=== PATIENT | female | born 1975 | race Two or more races ===

== ENCOUNTER 2025-03-02 10:05 | Inpatient (IN) | payer OTHER ==
[2025-03-02] MEDS ORDERED: ONDANSETRON 4 MG/2 ML VIAL ONE (11:24)
[2025-03-02 12:13] LABS: ABSOLUTE IMMATURE GRANULOCYTES 0.03 x10^3/uL (0.0-0.031); BASOPHILS # 0.03 x10^3/uL (0.01-0.08); EOSINOPHIL % 0.2 % (0.7-5.8); EOSINOPHILS # 0.02 x10^3/uL (0.04-0.36); MCHC 32.9 g/dl (32.2-35.5); MEAN CELL VOLUME 91.9 fl (79.4-94.8); MEAN PLT VOLUME 9.1 fl (9.4-12.3); MONOCYTE # 0.49 x10^3/uL (0.24-0.86); MONOCYTE % 4.9 % (4.7-12.5); RDW 12.9 % (12.2-17.1)
[2025-03-02] MEDS: ONDANSETRON 4 MG/2 ML VIAL IVPUSH ONE (12:14)
[2025-03-02] MEDS: SODIUM CHLORIDE 1,000 ML IV STA ×2 (12:14→18:26)
[2025-03-02] MEDS: morphine CARPU-JECT 4 MG/1 ML DISP.SYRIN IVPUSH ONE ×2 (12:14→16:08)
[2025-03-02 12:18] LABS: URINE APPEARANCE TURBID; URINE BILIRUBIN NEGATIVE (NEGATIVE); URINE COLOR YELLOW; URINE GLUCOSE (UA) NEGATIVE (NEGATIVE); URINE KETONE NEGATIVE (NEGATIVE); URINE NITRITE NEGATIVE (NEGATIVE); URINE PROTEIN NEGATIVE (NEGATIVE); URINE UROBILINOGEN 0.2 mg/dL (0.2-1.0)
[2025-03-02 12:19] LABS: HCG,QUALITATIVE URINE Negative; URINE LEUK ESTERASE NEGATIVE (NEGATIVE)
[2025-03-02 12:54] LABS: GLUCOSE,RANDOM 112.0 mg/dL (74-106)
[2025-03-02 12:55] LABS: CO2 25.0 mmol/L (21-32); TOT PROT 8.3 g/dl (6.4-8.2)
[2025-03-02 12:57] LABS: ALK PHOS 91.0 U/L (40-150)
[2025-03-02 13:00] LABS: CREATININE 0.44 mg/dL (0.55-1.3); SGOT/AST 52.0 U/L (5-34); SGPT/ALT 47.0 U/L (0-55)
[2025-03-02] MEDS ORDERED: KETOROLAC TROMETHAMINE 30 MG/1 ML VIAL IVPUSH PRN (16:42)
[2025-03-02] MEDS: PIPERACILLIN/TAZOB 4.5 GM 4.5 GM in DEXTROSE 5%-WATER 100 ML IVPB ONE (18:27)
[2025-03-02] MEDS: PIPERACILLIN/TAZOB 3.375 GM 3.375 GM in DEXTROSE 5%-WATER - 50 ML IVPB SCH (18:45)
[2025-03-02] MEDS: ACETAMINOPHEN 500 MG TABLET (FP) PO PRN (19:30)
[2025-03-02] MEDS: LOSARTAN 50MG/HCTZ 12.5MG 1 TAB PO SCH (19:41)
[2025-03-02 19:43] LABS: GLUCOSE,RANDOM 107.0 mg/dL (74-106); TOT PROT 7.1 g/dl (6.4-8.2)
[2025-03-02 19:44] LABS: CO2 24.0 mmol/L (21-32)
[2025-03-02 19:46] LABS: ALK PHOS 84.0 U/L (40-150)
[2025-03-02 19:48] VITALS: BMI 37.5
[2025-03-02 19:48] LABS: SGOT/AST 24.0 U/L (5-34); SGPT/ALT 39.0 U/L (0-55)
[2025-03-02 19:49] LABS: CREATININE 0.5 mg/dL (0.55-1.3)
[2025-03-02 20:10] LABS: HCV DIAGNOSTIC IN-HOUSE W/RFLX NON-REACTIVE (NONREACTIVE)
[2025-03-02 20:11] LABS: HIV INTERPRETATION NEGATIVE (NEGATIVE)
[2025-03-02] MEDS: LACTATED RINGERS SOLUTION 1,000 ML/1,000 ML INFUS.BAG IV SCH (20:53)
[2025-03-02] MEDS: ONDANSETRON 4 MG/2 ML VIAL IVPUSH PRN (20:53)
[2025-03-03 07:31] LABS: ABSOLUTE IMMATURE GRANULOCYTES 0.05 x10^3/uL (0.0-0.031); BASOPHILS # 0.02 x10^3/uL (0.01-0.08); EOSINOPHIL % 0.2 % (0.7-5.8); EOSINOPHILS # 0.02 x10^3/uL (0.04-0.36); MCHC 32.9 g/dl (32.2-35.5); MEAN CELL VOLUME 91.8 fl (79.4-94.8); MEAN PLT VOLUME 9.0 fl (9.4-12.3); MONOCYTE # 0.53 x10^3/uL (0.24-0.86); MONOCYTE % 4.6 % (4.7-12.5); RDW 13.0 % (12.2-17.1)
[2025-03-03 07:55] LABS: GLUCOSE,RANDOM 111.0 mg/dL (74-106)
[2025-03-03 07:56] LABS: CO2 27.0 mmol/L (21-32); TOT PROT 6.5 g/dl (6.4-8.2)
[2025-03-03 07:58] LABS: ALK PHOS 76.0 U/L (40-150)
[2025-03-03 08:01] LABS: CREATININE 0.52 mg/dL (0.55-1.3); SGOT/AST 21.0 U/L (5-34); SGPT/ALT 34.0 U/L (0-55)
[2025-03-03] MEDS: KCL 10 MEQ IVPB 10 MEQ/100 ML INFUS.BAG IVPB SCH (08:59)
[2025-03-03] MEDS: ENOXAPARIN NA (PORCINE) 40 MG/0.4 ML DISP.SYRIN SQ SCH (09:02)
[2025-03-03] MEDS: ACETAMINOPHEN 1000 MG/100 ML BAG IVPB SCH (09:02)
[2025-03-03] MEDS: AMINO ACIDS 4.25%/D5W 1,000 ML IV SCH (09:58)
[2025-03-03] MEDS ORDERED: POLYETHYLENE GLYCOL (HEALTHYLAX) 3350 17 GM PACKET PO SCH (10:00)
[2025-03-03] MEDS: KETOROLAC TROMETHAMINE 15 MG/ML VIAL IVPUSH SCH (11:16)
[2025-03-04] MEDS ORDERED: PIPERACILLIN/TAZOBACTAM 3.375 GM VIAL IVPB ONE (06:25)
[2025-03-04 07:26] LABS: MCHC 32.8 g/dl (32.2-35.5); MEAN CELL VOLUME 91.0 fl (79.4-94.8); MEAN PLT VOLUME 9.2 fl (9.4-12.3); RDW 12.9 % (12.2-17.1)
[2025-03-04 07:55] LABS: GLUCOSE,RANDOM 99.0 mg/dL (74-106)
[2025-03-04 07:57] LABS: CO2 25.0 mmol/L (21-32)
[2025-03-04 08:01] LABS: CREATININE 0.51 mg/dL (0.55-1.3)
[2025-03-04] MEDS: KCL 10 MEQ IVPB 10 MEQ/100 ML INFUS.BAG IVPB SCH (09:16)
[2025-03-04] MEDS: LOSARTAN POTASSIUM 50 MG TABLET PO ONE (11:30)
[2025-03-04] MEDS ORDERED: PANTOPRAZOLE SODIUM 40 MG in SODIUM CHLORIDE 100 ML IVPB SCH (16:15)
[2025-03-04] MEDS: PANTOPRAZOLE SODIUM 40 MG VIAL IVPUSH SCH (16:37)
[2025-03-04] MEDS: PIPERACILLIN/TAZOB 3.375 GM 3.375 GM in DEXTROSE 5%-WATER - 50 ML IVPB SCH ×2 (18:19→18:29)
[2025-03-04] MEDS: LACTATED RINGERS SOLUTION 1,000 ML/1,000 ML INFUS.BAG IV SCH (18:29)
[2025-03-05 07:23] LABS: MCHC 32.8 g/dl (32.2-35.5); MEAN CELL VOLUME 90.8 fl (79.4-94.8); MEAN PLT VOLUME 9.1 fl (9.4-12.3); RDW 12.7 % (12.2-17.1)
[2025-03-05 07:46] LABS: GLUCOSE,RANDOM 92.0 mg/dL (74-106)
[2025-03-05 07:48] LABS: CO2 24.0 mmol/L (21-32)
[2025-03-05 07:52] LABS: CREATININE 0.55 mg/dL (0.55-1.3)
[2025-03-05] MEDS: HYDROCHLOROTHIAZIDE 12.5 MG CAPSULE (FP) PO SCH (09:38)
[2025-03-05] MEDS: LOSARTAN POTASSIUM 50 MG TABLET PO SCH (09:39)
[2025-03-05] MEDS: POTASSIUM CHLORIDE ORAL LIQUID 20 MEQ/15 ML PO ONE (09:52)
[2025-03-05] MEDS: POTASSIUM CHLORIDE TABS 20 MEQ TABLET.ER (FP) PO SCH (21:59)
[2025-03-06 07:43] LABS: MCHC 32.2 g/dl (32.2-35.5); MEAN CELL VOLUME 91.7 fl (79.4-94.8); MEAN PLT VOLUME 8.6 fl (9.4-12.3); RDW 12.7 % (12.2-17.1)
[2025-03-06 08:15] LABS: GLUCOSE,RANDOM 81.0 mg/dL (74-106)
[2025-03-06 08:16] LABS: CO2 25.0 mmol/L (21-32)
[2025-03-06 08:21] LABS: CREATININE 0.58 mg/dL (0.55-1.3)
[2025-03-06] MEDS: MULTIVITAMINS (DAILY MVI) TABLET (FP) PO SCH (12:41)
[2025-03-06] MEDS: LACTATED RINGERS SOLUTION 1,000 ML/1,000 ML INFUS.BAG IV SCH (15:14)
[2025-03-06 18:24] VITALS: TEMP 98.8
[2025-03-06 21:18] VITALS: RESP 18
[2025-03-07 06:34] LABS: MCHC 32.8 g/dl (32.2-35.5); MEAN CELL VOLUME 91.3 fl (79.4-94.8); MEAN PLT VOLUME 8.7 fl (9.4-12.3); RDW 12.6 % (12.2-17.1)
[2025-03-07 07:13] LABS: GLUCOSE,RANDOM 86.0 mg/dL (74-106)
[2025-03-07 07:15] LABS: CO2 25.0 mmol/L (21-32)
[2025-03-07 07:19] LABS: CREATININE 0.58 mg/dL (0.55-1.3)
[2025-03-07] MEDS ORDERED: ACETAMINOPHEN 325 MG TABLET (FP) PO PRN (10:21)
[2025-03-07] MEDS: PANTOPRAZOLE 40 MG TABLET PO SCH (10:55)
[2025-03-07] MEDS: VANCOMYCIN ORAL SOLUTION 125 MG/2.5 ML PO SCH (11:22)
[2025-03-07] MEDS: amLODIPine BESYLATE 2.5 MG TABLET (FP) PO SCH (12:08)
[2025-03-07] MEDS: LACTOBACILLUS ACIDOPHILUS 1 TABLET PO SCH (12:08)
[2025-03-07 13:46] VITALS: BP 163/97; PULSE 85
[2025-03-07] MEDS: AMOX TR/POT CLAV 875MG/125MG TABLETS (FP) PO ONE (17:07)
== END 2025-03-07 18:18 | disposition home or self-care (01) | DRG 244 ==
LOC: JER 10:05 → JERBED 16:40 → J8W 17:38
PROVIDERS: ADMIT Internal Medicine; ATTEND Nurse Practitioner Family
DX: K57.20 Diverticulitis of large intestine with perforation and abscess without bleeding (principal); E87.5 Hyperkalemia; I10 Essential (primary) hypertension; E66.09 Other obesity due to excess calories; E80.6 Other disorders of bilirubin metabolism; Z68.37 Body mass index [BMI] 37.0-37.9, adult
CPT/HCPCS: 36415; 71046-TC-FY; 74177-TC; 76705-TC; 76830-TC; 80048; 80053; 81003; 83690; 83735; 84100; 84703; 85025; 85027; 86803; 87086; 87389; 87491; 87591; 93005; 93010; 99285-25; Q9967